=== PATIENT | female | born 1965 | race Caucasian/White ===

== ENCOUNTER 2017-03-26 08:33 | Day surgery (SDC) | payer OTHER ==
[~2017-03-26] VITALS: Ht 162.6 cm; Wt 61.2 kg
[2017-03-26 09:31] VITALS: BP 113/77
[2017-03-26 11:00] VITALS: BP 100/60
== END 2017-03-26 13:05 | disposition home or self-care (01) ==
LOC: GI 08:33 → OR 12:30 → GI 13:05
PROVIDERS: Internal Medicine Gastroenterology
PROC: 0DJD8ZZ Inspection of Lower Intestinal Tract, Via Natural or Artificial Opening Endoscopic (ICD-10-PCS; principal; 2017-03-26 10:00)
DX: Z12.11 Encounter for screening for malignant neoplasm of colon (principal); K21.9 Gastro-esophageal reflux disease without esophagitis; Z68.23 Body mass index [BMI] 23.0-23.9, adult; Z98.51 Tubal ligation status
CPT/HCPCS: 45378; J1200; J1610; J2250; J2310; J3010; J3490

== ENCOUNTER 2018-06-28 21:09 | Emergency (ER) | payer OTHER ==
[~2018-06-28] VITALS: Ht 165.1 cm; Wt 67.6 kg
[2018-06-28 21:15] VITALS: Ht 165.1 cm; Wt 67.6 kg
[2018-06-28 21:46] VITALS: BP 125/84
== END 2018-06-28 21:46 | disposition home or self-care (01) ==
LOC: ED 21:09
DX: L03.011 Cellulitis of right finger (principal); K21.9 Gastro-esophageal reflux disease without esophagitis; Z88.5 Allergy status to narcotic agent; Z88.6 Allergy status to analgesic agent

== ENCOUNTER 2018-11-08 20:35 | Emergency (ER) | payer OTHER ==
[~2018-11-08] VITALS: Ht 162.6 cm; Wt 67.8 kg
[2018-11-08 20:57] VITALS: Ht 162.6 cm; Wt 67.8 kg
[2018-11-08 22:19] VITALS: BP 114/73
== END 2018-11-08 22:19 | disposition home or self-care (01) ==
LOC: ED 20:35
DX: S39.012A Strain of muscle, fascia and tendon of lower back, initial encounter (principal); K21.9 Gastro-esophageal reflux disease without esophagitis; M79.7 Fibromyalgia; Z88.1 Allergy status to other antibiotic agents; Z88.5 Allergy status to narcotic agent; Z88.6 Allergy status to analgesic agent; Z88.8 Allergy status to other drugs, medicaments and biological substances; X58.XXXA Exposure to other specified factors, initial encounter; Y93.89 Activity, other specified; Y92.89 Other specified places as the place of occurrence of the external cause; Y99.8 Other external cause status